=== PATIENT | female | born 2000 | race Asian ===

== ENCOUNTER 2020-07-15 23:01 | Emergency (ER) | payer BC ==
[2020-07-15 23:11] VITALS: BP 112/53; PULSE 68; RESP 15; TEMP 97.9
[2020-07-15] MEDS ORDERED: IPRATROPIUM-ALBUTEROL 3 ML NEB INHALATION STA (23:40)
[2020-07-15] MEDS ORDERED: predniSONE 50 MG TAB PO STA (23:41)
--- NOTE | 2020-07-15 23:42 | ED ---
SOB HPI - General Chief Complaint: Shortness of Breath Stated Complaint: SOB Time Seen by Provider: 07/15/20 23:16 Source: patient Mode of arrival: ambulatory Limitations: no limitations - History of Present Illness Initial Comments: 20-year-old female with history of asthma presenting to the emergency department with chief complaint of shortness of breath. Patient states she was driving from [place] to [place] today and she has noticed her asthma symptoms or increasing severity. Patient reports increased shortness of breath and wheezing. States she has an albuterol inhaler but is not using it due to being . She does not take any other medication for her asthma. States her asthma typically well-controlled and seldom uses the inhaler. She doesn't use any other medications 40 asthma. Denies smoking chest pain fevers night sweats chills. She did report having sore throat earlier today. Unknown Covid exposure. - Related Data Previous Rx's Medication Instructions Recorded Albuterol Sulfate [Ventolin HFA] 1 - 2 puff INHALATION Q6H PRN #1 07/16/20 inhaler predniSONE 40 mg PO DAILY #5 tab 07/16/20 Allergies Allergy/AdvReac Type Severity Reaction Status Date / Time cat dander Allergy Cough Verified 07/15/20 23:12 dog dander Allergy Cough Verified 07/15/20 23:12 Review of Systems ROS Statement: Those systems with pertinent positive or pertinent negative responses have been documented in the HPI. ROS Other: All systems not noted in ROS Statement are negative. Past Medical History Past Medical History: Asthma History of Any Multi-Drug Resistant Organisms: None Reported Past Surgical History: No Surgical Hx Reported Past Psychological History: No Psychological Hx Reported Smoking Status: Never smoker Past Alcohol Use History: Occasional Past Drug Use History: None Reported General Exam Limitations: no limitations General appearance: alert, in no apparent distress Head exam: Present: atraumatic, normocephalic, normal inspection Eye exam: Present: normal appearance, PERRL, EOMI Pupils: Present: normal accommodation ENT exam: Present: normal exam, normal oropharynx, mucous membranes moist, TM's normal bilaterally, normal external ear exam Neck exam: Present: normal inspection, full ROM. Absent: tenderness Respiratory exam: Present: wheezes (Diffuse bilateral wheezing). Absent: normal lung sounds bilaterally, rales, rhonchi, stridor Cardiovascular Exam: Present: regular rate, normal rhythm, normal heart sounds. Absent: systolic murmur, diastolic murmur Extremities exam: Present: normal inspection, full ROM, normal capillary refill. Absent: tenderness, pedal edema, joint swelling, calf tenderness Back exam: Present: normal inspection, full ROM. Absent: tenderness, CVA tenderness (R), CVA tenderness (L) Neurological exam: Present: alert, oriented X3, normal gait Psychiatric exam: Present: normal affect, normal mood Skin exam: Present: warm, dry, intact, normal color Course Vital Signs 07/15/20 07/16/20 07/16/20 23:08 00:19 00:35 Temperature 97.9 F Pulse Rate 68 68 68 Respiratory 15 Rate Blood Pressure 112/53 O2 Sat by Pulse 98 Oximetry Medical Decision Making - Medical Decision Making 20-year-old female with history of asthma presenting to emergency Department with a chief complaint of shortness of breath. Patient has bilateral wheezing on auscultation. Chest x-ray is unremarkable. Patient was given DuoNeb and prednisone. Reevaluation patient reports great improvement symptoms. EKG showing sinus arrhythmia. Patient will be discharged with 5 days of prednisone and albuterol inhaler. Return parameters discussed the patient was standing agreeable. Case discussed physician. - EKG Data EKG Comments: Sinus arrhythmia ventricular rate 62, CA 152, QRS 82, QTC 412. Disposition Clinical Impression: Asthma exacerbation Disposition: HOME SELF-CARE Condition: Stable Instructions (If sedation given, give patient instructions): Asthma (ED) Additional Instructions: Take prescribed medication as directed. Follow with primary care physician. Return to emergency department if symptoms worsen. Prescriptions: predniSONE 40 mg PO DAILY #5 tab Albuterol Sulfate [Ventolin HFA] 1 - 2 puff INHALATION Q6H PRN #1 inhaler PRN Reason: Wheezing Is patient prescribed a controlled substance at d/c from ED?: No Referrals: Meenu Rodriguez MD [Primary Care Provider] - 1-2 days Time of Disposition: 00:54
--- NOTE | 2020-07-15 23:54 | XR ---
EXAMINATION TYPE: XR chest 2V DATE OF EXAM: 07/15/2020 COMPARISON: NONE HISTORY: Short of breath TECHNIQUE: FINDINGS: Heart and mediastinum are normal. Lungs are clear. Diaphragm is normal. Bony thorax appears normal. IMPRESSION: Normal chest.
== END 2020-07-16 01:03 | disposition home or self-care (01) ==
LOC: EC 23:01
DX: J45.901 Unspecified asthma with (acute) exacerbation (principal); Z20.828 Contact with and (suspected) exposure to other viral communicable diseases; I49.8 Other specified cardiac arrhythmias; Z91.048 Other nonmedicinal substance allergy status
CPT/HCPCS: 94640; 93005; 71046; 99285; U0003; J7512